=== PATIENT | male | born 1990 | race Caucasian/White ===

== ENCOUNTER 2016-08-15 00:07 | Emergency (ER) | payer OTHER ==
[2016-08-15 01:24] VITALS: BP 134/80
--- NOTE | 2016-08-15 02:12 | EDM.PDOC ---
ED HISTORY OF PRESENT ILLNESS - General Chief Complaint: Respiratory Problem Stated Complaint: FEVER CHILLS COUGH Time Seen by Provider: 08/15/16 02:02 Source of Information: Reports: Patient History Limitations: Reports: No limitations - History of Present Illness INITIAL COMMENTS - FREE TEXT/NARRATIVE: Patient presents for evaluation and treatment of fevers, chills, cough and a sore throat. He reports the symptoms have been going on since about Tuesday. He reports that he works at home on the [employer] and many of his coworkers have been ill. Current symptoms include fevers, chills, cough, headaches, body aches and a sore throat. He states that he has not taken his temp and is not sure how high it has been. He hasn't taken any [id number] medications for symptoms relief. He denies any ear pain, nausea, vomiting, abdominal pain, diarrhea or constipation. He states that he did get his influenza vaccine. Patient would also like his blood sugar checked. He is concerned he is a diabetic. He reports a decreased appetite. He reports episodes of what sounds to be hypoglycemia where he is lightheaded and does not feel well. He states it improves after eating. - Related Data Allergies/ADRs: Allergies Allergy/AdvReac Type Severity Reaction Status Date / Time cefaclor [From [facility]] Allergy Rash Verified 08/15/16 01:24 Home Meds: Home Meds levETIRAcetam [Keppra] 1,000 mg PO BEDTIME 08/15/16 [History] levETIRAcetam [Keppra] 500 mg PO ACBREAKFAST 08/15/16 [History] Past Medical History HEENT History: Reports: Impaired vision Musculoskeletal History: Reports: Back pain, chronic Neurological History: Reports: Seizure - Past Surgical History HEENT Surgical History: Reports: Other (see below) Other HEENT Surgeries/Procedures: Throat expansion surgery Social & Family History - Family History Family Medical History: Noncontributory - Tobacco Use Smoking Status *Q: Current Some Day Smoker Years of Tobacco use: 10 Packs/Tins Daily: 0.1 - Caffeine Use Caffeine Use: Reports: Coffee, Energy drinks - Recreational Drug Use Recreational Drug Use: No ED ROS GENERAL - Review of Systems Review Of Systems: See Below Constitutional: Reports: fever, chills, decreased appetite, other (body aches) HEENT: Reports: Throat pain. Denies: Ear pain Respiratory: Reports: Cough GI/Abdominal: Denies: Abdominal pain, Constipation, Diarrhea, Nausea, Vomiting Neurological: Reports: Headache ED EXAM, GENERAL - Physical Exam Exam: See Below Exam Limited By: No limitations General Appearance: alert, WD/WN, no apparent distress Ears: normal external exam, normal canal, hearing grossly normal, normal TMs Nose: normal inspection Throat/Mouth: Normal inspection, Normal voice, No airway compromise, Other ( erythema to the posterior oropharynx) Respiratory/Chest: no respiratory distress, lungs clear, normal breath sounds Cardiovascular: normal peripheral pulses, regular rate, rhythm, no murmur GI/Abdominal: soft, non tender Neurological: alert, oriented, normal cognition Psychiatric: normal affect, normal mood Skin Exam: Warm, Dry, Normal color Course - Vital Signs Last Recorded V/S: Last Vital Signs Temp 37.0 C 08/15/16 01:20 Pulse 71 08/15/16 01:20 Resp 18 08/15/16 01:20 BP 134/80 08/15/16 01:20 Pulse Ox 95 08/15/16 01:20 - Orders/Labs/Meds Orders: Active Orders 24 hr Category Date Time Status CULTURE STREP A CONFIRMATION [] Stat Lab 08/15/16 02:21 Results STREP SCRN A RAPID W CULT CONF [] Stat Lab 08/15/16 02:21 Results Labs: Laboratory Tests 08/15/16 08/15/16 08/15/16 Range/Units 02:27 02:27 02:27 WBC 6.65 (4.23-9.07) K/mm3 RBC 5.10 (4.63-6.08) M/mm3 Hgb 15.2 (13.7-17.5) gm/L Hct 43.8 (40.1-51.0) % MCV 85.9 (79.0-92.2) fl MCH 29.8 (25.7-32.2) pg MCHC 34.7 (32.2-35.5) g/dl RDW Std Deviation 39.4 (35.1-43.9) fL Plt Count 84 L (163-337) K/mm3 MPV 13.4 H (9.4-12.3) fl Sodium 140 (136-145) mEq/L Potassium 3.9 (3.5-5.1) mEq/L Chloride 103 (98-107) mEq/L Carbon Dioxide 27 (21-32) mEq/L Anion Gap 13.9 (5-15) BUN 13 (7-18) mg/dL Creatinine 1.0 (0.7-1.3) mg/dL Est Cr Clr Drug Dosing 122.87 mL/min Estimated GFR (MDRD) > 60 (>60) mL/min BUN/Creatinine Ratio 13.0 L (14-18) Glucose 95 (74-106) mg/dL Hemoglobin A1c 5.20 (4.50-6.20) % Calcium 8.9 (8.5-10.1) mg/dL Total Bilirubin 0.3 (0.2-1.0) mg/dL AST 9 L (15-37) U/L ALT 20 (16-63) U/L Alkaline Phosphatase 55 (46-116) U/L Total Protein 7.6 (6.4-8.2) g/dl Albumin 4.4 (3.4-5.0) g/dl Globulin 3.2 gm/dL Albumin/Globulin Ratio 1.4 (1-2) Monoscreen (NEGATIVE) 08/15/16 Range/Units 02:27 WBC (4.23-9.07) K/mm3 RBC (4.63-6.08) M/mm3 Hgb (13.7-17.5) gm/L Hct (40.1-51.0) % MCV (79.0-92.2) fl MCH (25.7-32.2) pg MCHC (32.2-35.5) g/dl RDW Std Deviation (35.1-43.9) fL Plt Count (163-337) K/mm3 MPV (9.4-12.3) fl Sodium (136-145) mEq/L Potassium (3.5-5.1) mEq/L Chloride (98-107) mEq/L Carbon Dioxide (21-32) mEq/L Anion Gap (5-15) BUN (7-18) mg/dL Creatinine (0.7-1.3) mg/dL Est Cr Clr Drug Dosing mL/min Estimated GFR (MDRD) (>60) mL/min BUN/Creatinine Ratio (14-18) Glucose (74-106) mg/dL Hemoglobin A1c (4.50-6.20) % Calcium (8.5-10.1) mg/dL Total Bilirubin (0.2-1.0) mg/dL AST (15-37) U/L ALT (16-63) U/L Alkaline Phosphatase (46-116) U/L Total Protein (6.4-8.2) g/dl Albumin (3.4-5.0) g/dl Globulin gm/dL Albumin/Globulin Ratio (1-2) Monoscreen Negative (NEGATIVE) - Re-Assessments/Exams Free Text/Narrative Re-Assessment/Exam: 08/15/16 03:13 labs Have returned. His influenza, strep and mono are negative. White blood cell count is normal at 6.5, hemoglobin 15.2 platelets are slightly low at 84. Sodium is 140, potassium 3.9 chloride is 103. Anion gap is 13.9. Glucose is 95. A1c is within normal limits at 5.2. I reviewed the lab results with the patient. Likely has a viral infection. Is also likely causing the throbocytopenia but I will have him followup with his primary care provider this week for recheck. Will discharge him at this time. Discharge instructions Departure - Departure Time of Disposition: 03:19 Disposition: Home, Self-Care 01 Condition: fair Clinical Impression: Viral upper respiratory infection Instructions: Upper Respiratory Infection, Adult, [id number] Referrals: PCP,Not In Area [Primary Care Provider] - Forms: ED Department Discharge Additional Instructions: Follow-up with PCP in 1-2 weeks for a recheck of your platelets. Expect to feel ill the next 1-2 weeks. The first 3 days will be the worse. Rest and drink plenty of fluids. OTC tylenol or motrin as needed for pain relief. Recommend OTC chloraseptic spray as a gargle for additional throat pain relief. Please return to the ER should your symptoms change or worsen. - My Orders Last 24 Hours: My Active Orders 08/15/16 02:21 CULTURE STREP A CONFIRMATION [RM] Stat STREP SCRN A RAPID W CULT CONF [RM] Stat - Assessment/Plan Last 24 Hours: My Active Orders 08/15/16 02:21 CULTURE STREP A CONFIRMATION [RM] Stat STREP SCRN A RAPID W CULT CONF [] Stat
== END 2016-08-15 03:30 | disposition home or self-care (01) ==
LOC: JD.ED 00:07
DX: J06.9 Acute upper respiratory infection, unspecified (principal); B97.89 Other viral agents as the cause of diseases classified elsewhere; Z88.8 Allergy status to other drugs, medicaments and biological substances
CPT/HCPCS: 36415; 80053; 83036; 85027; 86308; 87081; 87430; 87804; 99282; 99283

== ENCOUNTER 2016-11-09 23:33 | Emergency (ER) | payer OTHER ==
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
[2016-11-09 23:48] VITALS: BP 134/88
--- NOTE | 2016-11-10 08:21 | CR ---
Chest: Two views of the chest were obtained. Comparison: No previous study. Heart size and mediastinum are within normal limits. Lungs are clear. Bony structures are within normal limits for the patient's age. Impression: 1. Nothing acute is appreciated on two-view chest x-ray. Diagnostic code #1
== END 2016-11-10 01:41 | disposition home or self-care (01) ==
LOC: JD.ED 23:33
DX: S20.211A Contusion of right front wall of thorax, initial encounter (principal); S05.12XA Contusion of eyeball and orbital tissues, left eye, initial encounter; F17.210 Nicotine dependence, cigarettes, uncomplicated; Z88.1 Allergy status to other antibiotic agents; Y04.0XXA Assault by unarmed brawl or fight, initial encounter
CPT/HCPCS: 71020; 71020-26; 99282; 99284